=== PATIENT | male | born 1965 | race Caucasian/White ===

== ENCOUNTER 2016-09-11 11:52 | Emergency (ER) | payer OTHER ==
[~2016-09-11] VITALS: Ht 170.2 cm; Wt 95.3 kg
[2016-09-11] MEDS ORDERED: DuoNeb 0.5-3(2.5)mg/3ml neb HHN ONE (12:15)
[2016-09-11 12:17] VITALS: BP 125/82
[2016-09-11] MEDS ORDERED: PredniSONE 20mg tab ORAL ONE (12:30)
[2016-09-11] MEDS ORDERED: EPIPEN 2-P0.3 MG/0.3 IM (12:55)
[2016-09-11] MEDS ORDERED: BENADRYL25 MG ORAL (12:55)
[2016-09-11] MEDS ORDERED: ALBUTEROL SULF8.5 GM INH (12:55)
[2016-09-11] MEDS ORDERED: PREDNISONE20 MG ORAL (12:55)
[2016-09-11 13:10] VITALS: BP 121/69
--- NOTE | 2016-09-11 13:20 | Emergency Room Report ---
History of Present Illness General Chief Complaint: Allergic Reaction Source: Patient Present Illness HPI Patient is a 51-year-old male presented after increased difficulty breathing. Patient gradual onset of symptoms. Patient had prior history of COPD. He is a smoker. He denies any fever. He reportedly had been stung by a wasp 2 days prior to arrival. He reported having localized itching and pain. The patient denied any productive cough. He reported having some nonproductive cough and chest tightness Allergies: Coded Allergies: No Known Allergies (Unverified , 09/11/16) Patient History Past Medical History: see triage record Reviewed Nursing Documentation: PMH: Agreed, PSxH: Agreed Nursing Documentation-PM Past Medical History: No History, Except For Hx Hypertension: Yes Hx COPD: Yes Hx Cerebrovascular Accident: Yes - 2010 Review of Systems All Other Systems: negative except mentioned in HPI Physical Exam Vital Signs Date Time Temp Pulse Resp B/P Pulse Ox O2 Delivery O2 Flow Rate FiO2 09/11/16 12:02 97.3 66 18 156/127 95 Room Air 09/11/16 12:25 21 General Appearance: well appearing, no apparent distress, alert, GCS 15 Head: normocephalic, atraumatic ENT: hearing grossly normal, normal voice Neck: full range of motion, supple Respiratory: no respiratory distress, speaking full sentences, wheezing, expiration Cardiovascular #1: normal peripheral pulses, no edema Gastrointestinal: normal bowel sounds, soft Musculoskeletal: normal inspection, back normal, no calf tenderness Neurologic: normal inspection, alert, oriented x3, normal gait Psychiatric: mood/affect normal Skin: other - small lesion to mid back no stinger noted Medical Decision Making Diagnostic Impression: Primary Impression: Wasp sting Additional Impressions: Allergic reaction COPD exacerbation ER Course Patient presented for shortness of breath.Differential included but was not limited to anemia, pneumonia, pneumothorax, myocardial infarction, pericardial effusion, congestive heart failure, acidosis, allergic reaction. The patient was given breathing treatments as well as oral steroids. Patient had improvement in his breathing and stated he felt much better. The patient was given prescriptions for oral antihistamines EpiPen and albuterol. The patient was advised to return if he began having any worsening difficulty breathing. This does not appear to be an anaphylactic reaction as the patient seems to have more of an exacerbation of his COPD. I EKG interpreted by me showed normal sinus rhythm with a rate of [address] or T wave changes.The patient is advised to follow up with primary care doctor. Patient is advised to return if any worsening condition or if any changes in status that are concerning. EKG Diagnostic Results Rate: normal - 70 Rhythm: NSR ST Segments: no acute changes Chest X-Ray Diagnostic Results Chest X-Ray Ordered: Yes # of Views/Limited/Complete: 1 View Interpretation: no consolidation, no effusion, no pneumothorax, no acute cardiopulmonary disease Indication: Shortness of Breath Impression: No acute disease Date Electronically Signed: Sep 11, 2016 Time Electronically Signed: 13:18 Last Vital Signs Date Time Temp Pulse Resp B/P Pulse Ox O2 Delivery O2 Flow Rate FiO2 09/11/16 12:35 74 12 98 Room Air 21 09/11/16 12:17 97.2 125/82 Status: improved Disposition: HOME, SELF-CARE Condition: Stable Scripts Diphenhydramine Hcl* (BENADRYL*) 25 Mg Capsule 25 MG ORAL Q6H Y for Itching, #30 CAP Prov: Chris Jeffers 09/11/16 Albuterol Sulfate* (ALBUTEROL SULFATE MDI*) 8.5 Gm Hfa.aer.ad 2 PUFF INH Q6H, #1 INH 0 Refills Prov: Chris Jeffers 09/11/16 Prednisone* (PREDNISONE*) 20 Mg Tablet 40 MG ORAL DAILY, #10 TAB Prov: Chris Jeffers 09/11/16 Epinephrine (Epipen 2-Eddie) 0.3 Mg/0.3 Ml Auto.injct 0.3 MG IM ONCE, #1 EA Prov: Chris Jeffers 09/11/16 Referrals: NON PHYSICIAN (PCP) Patient Instructions: Chronic Obstructive Pulmonary Disease Exacerbation, Easy- to-Read, Bee, Wasp, or Hornet Sting Chris Jeffers Sep 11, 2016 13:20
--- NOTE | 2016-09-13 08:19 | Cardiology Report ---
APPROVED REPORT EKG Measurement Heart [id number] Normal sinus rhythm Left axis deviation Abnormal ECG
--- NOTE | 2016-09-13 11:45 | Diagnostic Imaging Report ---
Indication: SOB Technique: One view of the chest Comparison: None Findings: Lungs and pleural spaces are clear. Heart size is normal. Impression: No acute process
== END 2016-09-11 13:10 | disposition home or self-care (01) ==
LOC: EMR 13:00
DX: T78.40XA Allergy, unspecified, initial encounter (principal); J44.1 Chronic obstructive pulmonary disease with (acute) exacerbation; I10 Essential (primary) hypertension; Z86.73 Personal history of transient ischemic attack (TIA), and cerebral infarction without residual deficits; R05 Cough; W57.XXXA Bitten or stung by nonvenomous insect and other nonvenomous arthropods, initial encounter; Y93.9 Activity, unspecified; Y92.9 Unspecified place or not applicable
CPT/HCPCS: 71010; 93005; 94640; 94664; 99284; J7620